=== PATIENT | male | born 2000 | race Caucasian/White ===

== ENCOUNTER 2022-05-06 19:45 | Outpatient (CLI) | payer OTHER, SELFPAY | END 2022-05-06 19:46 | disposition home or self-care (01) | PROVIDERS: PCP Family Medicine; Visit Provider Otolaryngology | DX: G47.33 Obstructive sleep apnea (adult) (pediatric) (principal) | CPT/HCPCS: 95806 ==

== ENCOUNTER 2022-05-26 20:12 | Outpatient (CLI) | payer OTHER, SELFPAY ==
--- NOTE | 2022-06-09 13:09 | W.PM.SLEEP ---
Sleep Study Details Details Interpreting Provider: Derek Salmeron MD Date of Sleep Study: 05/26/22 Sleep Study Details: STUDY TYPE:? Home ? BMI:? 34.9 ORDERING PROVIDER:? Aury INDICATION:? Concerns about sleep apnea ? SLEEP SUMMARY:? 396 monitored minutes RESPIRATORY SUMMARY:? AHI 6.2, supine AHI 9.8, left lateral AHI 1.7 Low oxygen 88 Snoring% 19.7 PERIODIC LIMB MOVEMENTS OF SLEEP:? Not recorded CARDIAC:? 46-102, mean 63.3 IMPRESSION:? Mild obstructive sleep apnea with supine position dependency RECOMMENDATION: Positional therapy, AutoSet CPAP at 4-17 or dental appliance
== END 2022-05-26 20:13 | disposition home or self-care (01) ==
PROVIDERS: PCP Family Medicine; Visit Provider Otolaryngology
DX: G47.33 Obstructive sleep apnea (adult) (pediatric) (principal)
CPT/HCPCS: 95806

== ENCOUNTER 2023-03-22 05:21 | Emergency (ER) | payer OTHER, SELFPAY ==
[2023-03-22 05:25] VITALS: BP 123/78; PULSE 63; RESP 16; TEMP 35.8; O2SAT 97; BMI 33.7
--- NOTE | 2023-03-22 05:34 | CRLHL7_ITS ---
For Patients: As a result of the Century Cures Act, medical imaging exams and procedure reports are released immediately into your electronic medical record. You may view this report before your referring provider. If you have questions, please contact your health care provider. Indication: Right foot pain. Technique: Right foot 2 views. Comparison: None. Findings: Bones: Alignment is normal. No fractures or bone lesions. Joint spaces: No significant degenerative changes. Soft tissues: Unremarkable. Impression: No findings to explain pain. Dictated by Arnie Díaz MD @ 03/22/2023 6:13:09 AM (Electronically Signed)
--- NOTE | 2023-03-22 05:38 | ED_ITS ---
HPI - General Adult General Chief complaint: Extremity Pain/Injury, Lower Stated complaint: R foot painful to walk Time Seen by Provider: 03/22/23 05:27 Source: patient Mode of arrival: ambulatory Limitations: no limitations History of Present Illness HPI narrative: 23-year-old male coming in today complaining of foot pain for the last 1 hour. States that he went to bed without any problems last night and then woke up at 4:30 a.m. in the morning and went to stand up and felt acute sharp pain on the ball of his foot. He presented to the ER for immediate evaluation. He denies pain in any other joints, denies any trauma to that foot. He does work on his feet and wears type foods. He never had this pain before. He had pizza for dinner last night, no alcohol. He denies burning sensation or electric shock like sensation, just describes it as a sharp pain. When he is not standing it does not hurt, any pressure makes it uncomfortable. The pain does not radiate. Related Data Previous Rx's Medication Instructions Recorded montelukast 10 mg tablet 10 mg PO QPM #90 tabs 03/19/22 trazodone 50 mg tablet 50 mg PO .hs #90 tabs 11/09/22 Allergies Allergy/AdvReac Type Severity Reaction Status Date / Time No Known Drug Allergies Allergy Verified 03/22/23 05:28 Review of Systems Status of ROS: Reports: 6 or more systems reviewed and unremarkable except as noted in History and below [facility] Surgical History Status post appendectomy ?Z90.49 - Acquired absence of other specified parts of digestive tract (ICD- 10) History of tympanostomy tube placement ?Z96.22 - Myringotomy tube(s) status (ICD-10) Social History Smoking Status: Former smoker How often do you have a drink containing alcohol: 2-3 times a week AUDIT-C Alcohol total score: 3 Non-prescribed substance use: denies use Exam Narrative: Exam Narrative: Well-nourished well-developed patient in no acute distress. Alert and oriented. Answers questions appropriately. Slightly flat affect. Thoughts are goal oriented and rational. No tangential or magical thinking noted. Patient speaks in full sentences without needing to catch his breath. HEENT: Normocephalic atraumatic. Pupils are equally round reactive to light. Extraocular muscles are intact. Conjunctivae are moist without any icterus noted. Moist mucous membranes. Extremities: Right foot is normal in appearance. There is no swelling or erythema noted. He has no stiffness of the ankle or toes. There is no tenderness to palpation of the toes. He has tenderness with pressure under the 1st and 2nd metatarsals. No tenderness lateral to that. There is no broken skin. Skin: Well perfused without any obvious rashes. Const: Vital Signs, click to edit/add: Vital Signs - 24 hr 03/22/23 05:25 Temperature 96.5 F L Pulse Rate [Pulse Oximeter] 63 Respiratory Rate 16 Blood Pressure [Ri ght Upper Arm] 123/78 Pulse Oximetry 97 Oxygen Delivery Me thod Room Air Course Course Hospital Course: Did do an x-ray of the foot, read by me, does not show any acute abnormalities. Vital Signs Vital signs: Initial Vital Signs Temperature 96.5 F L 03/22/23 05:25 Temperature Source Temporal Artery Scan 03/22/23 05:25 Pulse Rate 63 03/22/23 05:25 Respiratory Rate 16 03/22/23 05:25 Blood Pressure 123/78 03/22/23 05:25 Blood Pressure Mean 93 03/22/23 05:25 Pulse Oximetry 97 03/22/23 05:25 Oxygen Delivery Method Room Air 03/22/23 05:25 Vital Signs Temperature 96.5 F L 03/22/23 05:25 Pulse Rate 63 03/22/23 05:25 Respiratory Rate 16 03/22/23 05:25 Blood Pressure 123/78 03/22/23 05:25 Pulse Oximetry 97 03/22/23 05:25 Oxygen Delivery Method Room Air 03/22/23 05:25 Temperature 96.5 F L 03/22/23 05:25 Pulse Rate 63 03/22/23 05:25 Respiratory Rate 16 03/22/23 05:25 Blood Pressure 123/78 03/22/23 05:25 Pulse Oximetry 97 03/22/23 05:25 Oxygen Delivery Method Room Air 03/22/23 05:25 Medical Decision Making MDM Narrative Medical decision making narrative: 23-year-old male with foot pain. Differential diagnoses includes Barlow's neuroma, metatarsalgia. Recommend conservative management at this time with a padded shoe insert, ibuprofen and rest. Follow-up with primary care as needed. Imaging Data X-ray foot: Attestation: I have reviewed the pertinent imaging results. Radiologist's impression: Right foot pain. Technique: Right foot 2 views. Comparison: None. Findings: Bones: Alignment is normal. No fractures or bone lesions. Joint spaces: No significant degenerative changes. Soft tissues: Unremarkable. Impression: No findings to explain pain. Discharge Plan Discharge Clinical Impression: Acute foot pain Patient Disposition: Home, Self-Care Condition: Stable Additional Instructions: Different causes of foot pain include inflamed nerves, pressure on joint or inflammation of tendons and ligaments in the foot. At this time I do recommend that you wear a padded shoe insert. Okay to take ibuprofen 600 mg every 8 hours as needed for discomfort, always take on a full stomach. Rest as much as you can. Always wear shoes with good arch support. If you are not improving over the next week, follow-up with your primary care provider. Prescriptions: No Action montelukast 10 mg tablet 10 mg PO QPM Qty: 90 3RF trazodone 50 mg tablet 50 mg PO .hs Qty: 90 3RF Follow Up/Referrals: Saroj Jim MD [Primary Care Provider] - Stand Alone Forms: [employer] Info Instructions
== END 2023-03-22 06:39 | disposition home or self-care (01) ==
LOC: ED 06:06
PROVIDERS: Emergency Provider Family Medicine; PCP Family Medicine
DX: M79.671 Pain in right foot (principal)
CPT/HCPCS: 73620; 99283; 99284

== ENCOUNTER 2024-03-01 12:10 | Emergency (ER) | payer OTHER, SELFPAY ==
[2024-03-01 12:21] VITALS: BP 120/84; PULSE 100; RESP 24; TEMP 36.9; O2SAT 98; BMI 36.8
[2024-03-01 13:13] LABS: SARS PCR* Negative SARS-CoV-2 (Negative)
--- NOTE | 2024-03-01 13:29 | ED.GENADULT ---
HPI - General Adult General Chief complaint: Cough Stated complaint: Cough, tight chest, nauseous, light headed Time Seen by Provider: 03/01/24 12:12 History of Present Illness HPI narrative: This 24-year-old male comes in with persistent cough that started almost 2 months ago. He states that he went into urgent care and had a chest x-ray with negative results. He did received Tessalon Perles and a steroid. These treatments did not help him. He comes back today because of fits of coughing that has brought about emesis at times. He does not report any fevers. He arrives here with normal vital signs. Related Data Previous Rx's ?Medication ?Instructions ?Recorded montelukast 10 mg tablet 10 mg PO QPM #90 tabs 04/06/23 trazodone 50 mg tablet 50 mg PO .hs #90 tabs 01/19/24 albuterol sulfate 90 mcg/actuation 2 puff inhalation Q6H PRN cough 02/21/24 aerosol inhaler #6.7 grams benzonatate 200 mg capsule 200 mg PO BID-TID PRN cough #30 02/21/24 caps acetaminophen 300 mg-codeine 30 mg 1 tab PO Q6H PRN pain #15 tabs 03/01/24 tablet azithromycin 250 mg tablet 250 mg PO DAILY #6 tabs 03/01/24 (Zithromax Z-Devante) Allergies Allergy/AdvReac Type Severity Reaction Status Date / Time No Known Drug Allergies Allergy Verified 02/21/24 14:25 Review of Systems Status of ROS: Reports: 10 or more systems reviewed and unremarkable except as noted in History and below Narrative: Constitutional: No fevers, no weight gain or loss. Eyes: No discharge. No vision changes. HENT: No congestion, no sore throat, no ear pain. Cardiovascular: No palpitations. Respiratory: No shortness of breath, no wheezes. Persistent coughing that sometimes triggers emesis. Gastrointestinal: No abdominal pain, no vomiting, no diarrhea. Genitourinary: No dysuria, no hematuria. Musculoskeletal: Normal range of motion. Skin: No rashes, no pruritis. Neurological: No dizziness, weakness, sensory change, speech change. Endo/Heme/Allergies: No bruising or bleeding. No polydipsia. Pysch: no suicidality, no anxiety, no insomnia. All other systems reviewed and are negative. PFSH PFSH Surgical History Status post appendectomy ?Z90.49 - Acquired absence of other specified parts of digestive tract (ICD-10) History of tympanostomy tube placement ?Z96.22 - Myringotomy tube(s) status (ICD-10) Social History Smoking Status: Former smoker How often do you have a drink containing alcohol: 2-3 times a week AUDIT-C Alcohol total score: 3 Non-prescribed substance use: denies use Exam Narrative: Exam Narrative: Constitutional: Well-developed, well-nourished, no acute distress. HEENT: Normocephalic, atraumatic. Neck: Normal range of motion. Nontender. Supple. Heart: Regular. No murmurs. Normal rate. Intact distal pulses. Lungs: Clear to auscultation. No chest discomfort. No wheezes, rhonchi, or rales. Abdomen: Normal bowel sounds. Nontender. No rebound tenderness. Genitalia: Deferred. Back: No midline tenderness. Normal range of motion. Extremities: Normal range of motion. No injury. Skin: Intact. No rash. Warm. No erythema or pallor. Neurologic: No altered sensation. No weakness. Alert and oriented. Psychiatric: No suicidality. No anxiety or depression. No insomnia. Nursing notes and vitals signs are reviewed. Const: Vital Signs, click to edit/add: Vital Signs - 24 hr 03/01/24 12:21 Temperature 98.5 F Pulse Rate [Pulse Oximeter] 100 Respiratory Rate 24 Blood Pressure [Ri t Upper Arm] 120/84 Pulse Oximetry 98 Oxygen Delivery Me thod Room Air Course Vital Signs Vital signs: Initial Vital Signs Temperature 98.5 F 03/01/24 12:21 Temperature Source Temporal Artery Scan 03/01/24 12:21 Pulse Rate 100 03/01/24 12:21 Respiratory Rate 24 03/01/24 12:21 Blood Pressure 120/84 03/01/24 12:21 Blood Pressure Mean 96 03/01/24 12:21 Blood Pressure Position Sitting 03/01/24 12:21 Pulse Oximetry 98 03/01/24 12:21 Oxygen Delivery Method Room Air 03/01/24 12:21 Vital Signs Temperature 98.5 F 03/01/24 12:21 Pulse Rate 100 03/01/24 12:21 Respiratory Rate 24 03/01/24 12:21 Blood Pressure 120/84 03/01/24 12:21 Pulse Oximetry 98 03/01/24 12:21 Oxygen Delivery Method Room Air 03/01/24 12:21 Temperature 98.5 F 03/01/24 12:21 Pulse Rate 100 03/01/24 12:21 Respiratory Rate 24 03/01/24 12:21 Blood Pressure 120/84 03/01/24 12:21 Pulse Oximetry 98 03/01/24 12:21 Oxygen Delivery Method Room Air 03/01/24 12:21 Medical Decision Making MDM Narrative Medical decision making narrative: This patient has been coughing for the past 2 months and not improving. I did review a chest x-ray that was done at an urgent care visit. Today his viral swab was negative also. The patient does have normal vital signs and his lungs sound clear bilaterally on exam. He does have frequent nonproductive coughing. I stated that this is most likely a virus however the duration of the coughing with fits of coughing bring me to consider trying a course of Zithromax. He did receive a prescription for this along with prescription for Tylenol 3 for cough suppressant. Lab Data Labs: Lab Results 03/01/24 Range/Units 12:25 SARS-CoV-2 (PCR) Negative SARS-CoV-2 (Negative) Discharge Plan Discharge Clinical Impression: Acute lower respiratory infection Patient Disposition: Home, Self-Care Condition: Stable Additional Instructions: Take medications as prescribed. Follow up with MD return if worsening symptoms happen. Prescriptions: New azithromycin [Zithromax Z-Devante] 250 mg tablet 250 mg PO DAILY Qty: 6 0RF acetaminophen-codeine 300-30 mg tablet 1 tab PO Q6H PRN (Reason: pain) Qty: 15 0RF No Action benzonatate 200 mg capsule 200 mg PO BID-TID PRN (Reason: cough) Qty: 30 0RF albuterol sulfate 90 mcg/actuation HFA aerosol inhaler 2 puff inhalation Q6H PRN (Reason: cough) Qty: 6.7 0RF montelukast 10 mg tablet 10 mg PO QPM Qty: 90 0RF trazodone 50 mg tablet 50 mg PO .hs Qty: 90 3RF Follow Up/Referrals: Saroj Jim MD [Primary Care Provider] - Stand Alone Forms: [email or web address] Info Instructions
== END 2024-03-01 13:49 | disposition home or self-care (01) ==
LOC: ED 13:44
PROVIDERS: Emergency Provider Emergency Medicine Emergency Medical Services; PCP Family Medicine
DX: J22 Unspecified acute lower respiratory infection (principal)
CPT/HCPCS: 87635; 99283; 99284